=== PATIENT | male | born 2000 | race Native Hawaiian/Other Pacific Islander ===

== ENCOUNTER 2018-05-11 21:31 | Observation (INO) | payer MEDICAID ==
[~2018-05-11] VITALS: Ht 185.4 cm; Wt 83.5 kg
[2018-05-11 22:30] LABS: Basophils # (auto) 0 uL; Basophils % (auto) 0.4 % (0.0-2.0); Eosinophils # (auto) 0.1 uL; Eosinophils % (auto) 1.2 % (0.0-7.0); Hematocrit 46.7 % (41.0-53.0); Hemoglobin 15.6 g/dL (13.5-17.5); Lymphocytes # (auto) 2.7 uL; Lymphocytes % (auto) 30.8 % (10.0-50.0); Mean Corpuscular Hemoglobin 28.5 pg (28.0-32.0); Mean Corpuscular Hgb Conc. 33.4 g/dL (32.0-36.0); Mean Corpuscular Volume 85.4 fL (80.0-100.0); Monocytes # (auto) 0.5 uL; Monocytes % (auto) 5.9 % (0.0-12.0); Neutrophils # (auto) 5.3 uL; Neutrophils % (auto) 61.7 % (37.0-80.0); Nucleated Red Blood Cells % 0.1 %; Platelet Count (auto) 316 10^3/uL (140-450); Red Blood Cells 5.47 10^6/uL (4.5-5.90); White Blood Cell 8.6 10^3/uL (4.4-10.8)
[2018-05-11 22:43] LABS: Albumin 4.2 g/dL (3.4-5.0); Anion Gap 9 (5-15); BUN/Creatinine Ratio 8.5; Blood Urea Nitrogen 10 mg/dL (7-18); Carbon Dioxide 26 mmol/L (21-32); Chloride 103 mmol/L (98-107); GFR African American 103 mL/min; GFR Non-African American 85 mL/min; Glucose 88 mg/dL (74-106); Potassium 3.7 mmol/L (3.5-5.1); Sodium 138 mmol/L (136-145)
[2018-05-11 22:48] LABS: Alanine Aminotransferase 21 U/L (16-61); Alkaline Phosphatase 74 U/L (45-117); Aspartate Aminotransferase 18 U/L (15-37); Bilirubin, Total 0.6 mg/dL (0.2-1.0); Total Protein 8.2 g/dL (6.4-8.2)
[2018-05-11] MEDS ORDERED: IBUPROFEN 800 MG TAB PO ONE (23:45)
[2018-05-11] MEDS ORDERED: cefTRIAXone W LIDOCAINE 1 GM IM IM ONE (23:45)
[2018-05-11] MEDS ORDERED: cefTRIAXone SOD 1,000 MG VL ONE (23:58)
[2018-05-11] MEDS ORDERED: LIDOCAINE 2% (LOCAL ANESTH.) PF 5ml SDV ONE (23:59)
[2018-05-12 00:34] VITALS: BP 130/79
[2018-05-12] MEDS ORDERED: HYDROcodone-ACET 10/325MG TAB PO ONE (01:15)
== END 2018-05-12 01:15 | disposition home or self-care (01) | DRG 203 ==
LOC: ER 21:31 → OVERFLOW 21:32 → ER 05-12 01:15
PROVIDERS: ADMIT Emergency Medicine; ATTEND Emergency Medicine
DX: R07.89 Other chest pain (principal); J86.9 Pyothorax without fistula; J20.8 Acute bronchitis due to other specified organisms
CPT/HCPCS: 36415; 71045; 80053; 84443; 84484; 85025; 93005; 99285; G0378; J0696; J2001